=== PATIENT | male | born 1945 | race Hispanic/Latino ===

== ENCOUNTER 2024-10-24 15:00 | Outpatient (RCR) | payer MEDICARE | END 2024-11-15 | LOC: PT 15:00 | PROVIDERS: ATTEND Physician Assistant | DX: M75.81 Other shoulder lesions, right shoulder (principal); M25.511 Pain in right shoulder; M25.611 Stiffness of right shoulder, not elsewhere classified; M62.81 Muscle weakness (generalized) ==